=== PATIENT | male | born 1950 | race Caucasian/White ===

== ENCOUNTER → 2023-01-16 | Outpatient (CLI) | payer MEDICARE, OTHER ==
[~2023-01-16] MED LIST: LOTENSIN20 MG; LOTENSIN20 MG PO; VYTORIN 10 MG-41 TAB; ZANTAC 150MG T150 MG; ZANTAC 150MG T150 MG PO; ZITHROMAX Z PA250 MG PO; ZOCOR 40MG40 MG PO
== END ==
LOC: COL.RAD 07:23
DX: Q62.11 Congenital occlusion of ureteropelvic junction (principal)
CPT/HCPCS: A9562; J1940